=== PATIENT | female | born 1975 | race Caucasian/White ===

== ENCOUNTER 2017-09-08 19:40 | Emergency (ER) | payer OTHER ==
[~2017-09-08] VITALS: Ht 162.6 cm; Wt 97.5 kg
--- NOTE | ~2017-09-08 | EKG ---
[place] [address] [facility] [place] [address] ELECTROCARDIOGRAM REPORT Name: MINHBERNAKAMLESH HOPSON Room #: [facility]#: [id number] Admission: 09/08/17 Attend Phys: Discharge: 09/08/17 Date of : 71 Report #: [id number] THIS REPORT FOR: //name// [facility] ED Test Date: 2017-09-08 Test Time: 21:04:06 Pat Name: KAMLESH DURAN Department: Room: Gender: F [employer]bar Fabricator: MZOOK : 1975 Requested By: Adrienne Villeda Order Number: [id number] MD: Emerson Cramer Measurements Intervals [place] Rate: 96 P: 35 [place]: 154 QRS: 5 QRSD: 95 T: 3 QT: 353 QTc: 447 Interpretive Statements Sinus rhythm Normal tracing Compared to ECG 08/14/2016 13:36:30 No significant changes Electronically Signed On 09-09-2017 7:31:36 [employer] by Emerson Cramer [email or web address] <ELECTRONICALLY SIGNED> By: Emerson Cramer MD, [facility] 09/09/17 0731 [id number] Emerson Cramer MD, FACC /EPI
[~2017-09-08 19:40] MED LIST: ADVIL200 M1 PO; BAZA CR.1 EA TP; CIPRO500 MG PO; CLEOCIN HCL150 MG PO; DIFLUCAN150 MG PO; HYDROXYZINE HCL25 M2 PO; IBUPROFEN 800800 M1 PO; LAMICTAL XR100 MG PO; MACROBID 100 M100 M1 PO; NAPROSYN500 MG PO; OMEPRAZOLE 20 M20 MG PO; ONDANSETRON HCL4 M2 PO; PAXIL40 MG; PERCOCET 5-3251 EACH PO
[2017-09-08] MEDS ORDERED: PAXIL10 MG PO (19:55)
[2017-09-08] MEDS ORDERED: BUSPIRONE HCL10 MG PO (19:55)
[2017-09-08 21:06] LABS: ABSOLUTE NEUTROPHILS 4.8 thou/uL (1.4-8.2); BASOPHILS 0.6 % (0.0-2.0); EOSINOPHILS 2.9 % (0.0-3.0); HEMATOCRIT 39.3 % (37.0-47.0); HEMOGLOBIN 13.6 gm/dL (12.0-15.0); LYMPHOCYTES 35.7 % (24.0-44.0); MCH 31.5 pg (26.0-34.0); MCHC 34.6 g/dL (28.0-37.0); MCV 90.9 fL (80.0-100.0); MONOCYTES 8.7 % (1.0-8.0); PLATELET COUNT 249 thou/uL (150-400); POLYS 52.1 % (36.0-66.0); RBC 4.32 mil/uL (4.20-5.00); RDW 12.8 % (10.5-14.5); WBC 9.1 thou/uL (4.0-11.0)
[2017-09-08 21:14] LABS: ANION GAP 9 mmol/L (7-16); BUN 13 mg/dL (7-18); CALCIUM 9.3 mg/dL (8.5-10.1); CHLORIDE 102 mmol/L (98-107); CO2 26 mmol/L (21-32); CREATININE 0.7 mg/dL (0.6-1.0); GLUCOSE 97 mg/dL (74-106); POTASSIUM 3.3 mmol/L (3.5-5.1); SODIUM 137 mmol/L (136-145)
[2017-09-08 21:23] LABS: ALBUMIN 3.7 g/dL (3.4-5.0); MAGNESIUM 2.1 mg/dL (1.8-2.4); SGOT 20 U/L (15-37); SGPT 45 U/L (30-65); TOTAL BILIRUBIN 0.4 mg/dL (<0.1-1.0); TOTAL PROTEIN 7.4 g/dL (6.4-8.2); TROPONIN-I < 0.04 ng/mL (<0.06)
[2017-09-08] MEDS ORDERED: LISINOPRIL10 MG PO (21:58)
== END 2017-09-08 22:15 | disposition home or self-care (01) ==
LOC: ER 19:40
PROVIDERS: Nurse Practitioner Family
DX: R03.0 Elevated blood-pressure reading, without diagnosis of hypertension (principal); I10 Essential (primary) hypertension; F41.9 Anxiety disorder, unspecified; F32.9 Major depressive disorder, single episode, unspecified; E87.6 Hypokalemia; Z88.6 Allergy status to analgesic agent; Z90.49 Acquired absence of other specified parts of digestive tract